=== PATIENT | male | born 1995 | race Hispanic/Latino ===

== ENCOUNTER 2018-09-08 11:11 | Outpatient (CLI) | payer BC | END 2018-09-08 11:12 | disposition home or self-care (01) | LOC: RAD 11:11 | DX: M25.561 Pain in right knee (principal) ==

== ENCOUNTER 2018-10-12 07:45 | Outpatient (CLI) | payer BC | END 2018-10-12 07:46 | disposition home or self-care (01) | LOC: LAB 07:45 ==